=== PATIENT | male | born 1955 | race Caucasian/White ===

== ENCOUNTER → 2024-01-23 06:13 | Day surgery (SDC) | payer MEDICARE, OTHER, SELFPAY | LOC: GI 06:13 | PROVIDERS: ATTENDING PHYSICIAN Surgery; FAMILY PHYSICIAN Family Medicine | DX: Z12.11 Encounter for screening for malignant neoplasm of colon (principal); D12.3 Benign neoplasm of transverse colon; K57.30 Diverticulosis of large intestine without perforation or abscess without bleeding; Z86.0109 Personal history of other colon polyps | CPT/HCPCS: 45385; 88305 ==